=== PATIENT | male | born 1995 | race American Indian/Alaskan Native ===

== ENCOUNTER 2020-04-17 07:33 | Emergency (ER) | payer OTHER ==
[2020-04-17 07:46] VITALS: BP 126/65
[2020-04-17] MEDS ORDERED: SODIUM CHLORIDE 0.9% 1000 ML 1,000 ML IV ONE (08:23)
[2020-04-17] MEDS ORDERED: ONDANSETRON 4 MG/2 ML INJ IV ONE (08:23)
[2020-04-17 08:45] LABS: Basophils # (Auto) 0.1 K/mm3 (0.0-0.1); Basophils % (Auto) 0.7 % (0.0-1.8); Eosinophils % (Auto) 0.3 % (0.0-4.3); Hematocrit 45.9 % (35.5-45.6); Hemoglobin 15.5 gm/dl (11.8-15.2); Lymphocytes # (Auto) 0.8 K/mm3 (1.2-5.4); Mean Corpuscular HGB Conc 34 % (32-34); Mean Corpuscular Volume 82 fl (84-94); Monocytes # (Auto) 0.5 K/mm3 (0.0-0.8); Monocytes % (Auto) 3.4 % (0.0-7.3); Platelet Count 211 K/mm3 (140-440); Red Blood Count 5.61 M/mm3 (3.65-5.03)
--- NOTE | 2020-04-17 08:56 | Emergency Department Report ---
ED N/V/D HPI - General Chief complaint: Nausea/Vomiting/Diarrhea Stated complaint: NAUSEA Time Seen by Provider: 04/17/20 08:01 Source: patient Mode of arrival: Ambulatory Limitations: No Limitations - History of Present Illness Initial comments: Patient is a 24-year-old male presents emergency room complaints of nausea, vomiting, diarrhea that began yesterday at 3 PM. He states that the diarrhea is mild but he has had multiple episodes of vomiting. Patient states that he ate some leftover steak, rice, veggies that were approximately 3 days old and then about an hour and a half later he began to have the symptoms. He denies any abdominal pain, fever, hematochezia, hematemesis, melena, pus in the stool. He denies any recent travel, sick contacts, water from a different source, recent antibiotics. He denies any past medical history. He denies any allergies to medications. He endorses marijuana use. He denies alcohol use. - Related Data Previous Rx's Medication Instructions Recorded Last Taken Type Ondansetron [Zofran Odt] 4 mg PO Q8HR PRN #10 tab.rapdis 04/17/20 Unknown Rx Allergies Allergy/AdvReac Type Severity Reaction Status Date / Time No Known Allergies Allergy Unverified 04/17/20 07:44 ED Review of Systems ROS: Stated complaint: NAUSEA Other details as noted in HPI Comment: All other systems reviewed and negative ED Past Medical Hx - Past Medical History Previous Medical History?: No - Surgical History Past Surgical History?: No - Social History Smoking Status: Current Every Day Smoker Substance Use Type: Marijuana - Medications Home Medications: Home Medications Medication Instructions Recorded Confirmed Last Taken Type Ondansetron [Zofran Odt] 4 mg PO Q8HR PRN #10 tab.rapdis 04/17/20 Unknown Rx ED Physical Exam - General Limitations: No Limitations General appearance: alert, in no apparent distress - Head Head exam: Present: atraumatic, normocephalic - Eye Eye exam: Present: normal appearance - ENT ENT exam: Present: mucous membranes moist - Respiratory Respiratory exam: Present: normal lung sounds bilaterally. Absent: respiratory distress, wheezes, rales, rhonchi, stridor, chest wall tenderness, accessory muscle use, decreased breath sounds, prolonged expiratory - Cardiovascular Cardiovascular Exam: Present: regular rate, normal rhythm, normal heart sounds. Absent: systolic murmur, diastolic murmur, rubs, gallop - GI/Abdominal GI/Abdominal exam: Present: soft, normal bowel sounds, other (negative murphys sign, no mcburneys point ttp, no rushing turners or cullens sign). Absent: distended, tenderness, guarding, rebound, rigid - Neurological Exam Neurological exam: Present: alert, oriented X3 - Psychiatric Psychiatric exam: Present: normal affect, normal mood - Skin Skin exam: Present: warm, dry, intact ED Course Vital Signs 04/17/20 07:44 Temperature 98.0 F Pulse Rate 60 Respiratory 18 Rate Blood Pressure 126/65 O2 Sat by Pulse 100 Oximetry ED Medical Decision Making - Lab Data Result diagrams: 04/17/20 08:35 04/17/20 08:35 Lab Results 04/17/20 04/17/20 Range/Units 08:35 08:35 WBC 13.1 H (4.5-11.0) K/mm3 RBC 5.61 H (3.65-5.03) M/mm3 Hgb 15.5 H (11.8-15.2) gm/dl Hct 45.9 H (35.5-45.6) % MCV 82 L (84-94) fl MCH 28 (28-32) pg MCHC 34 (32-34) % RDW 13.0 L (13.2-15.2) % Plt Count 211 (140-440) K/mm3 Lymph % (Auto) 6.0 L (13.4-35.0) % [place] % (Auto) 3.4 (0.0-7.3) % Eos % (Auto) 0.3 (0.0-4.3) % Baso % (Auto) 0.7 (0.0-1.8) % Lymph # 0.8 L (1.2-5.4) K/mm3 [place] # 0.5 (0.0-0.8) K/mm3 Eos # 0.0 (0.0-0.4) K/mm3 Baso # 0.1 (0.0-0.1) K/mm3 Seg Neutrophils % 89.6 H (40.0-70.0) % Seg Neutrophils # 11.7 H (1.8-7.7) K/mm3 Sodium 142 (137-145) mmol/L Potassium 4.0 (3.6-5.0) mmol/L Chloride 99.2 (98-107) mmol/L Carbon Dioxide 26 (22-30) mmol/L Anion Gap 21 mmol/L BUN 11 (9-20) mg/dL Creatinine 1.1 (0.8-1.3) mg/dL Estimated GFR > 60 ml/min BUN/Creatinine Ratio 10 % Glucose 150 H (75-100) mg/dL Calcium 10.6 H (8.4-10.2) mg/dL Total Bilirubin 0.60 (0.1-1.2) mg/dL AST 15 (5-40) units/L ALT 14 (7-56) units/L Alkaline Phosphatase 49 (35-129) units/L Total Protein 9.1 H (6.3-8.2) g/dL Albumin 5.3 H (3.9-5) g/dL Albumin/Globulin Ratio 1.4 % Lipase 43 (13-60) units/L - Medical Decision Making Patient is a 24-year-old male presents emergency room complaints of nausea, vomiting, diarrhea that began yesterday at 3 PM. He states that the diarrhea is mild but he has had multiple episodes of vomiting. Patient states that he ate some leftover steak, rice, veggies that were approximately 3 days old and then about an hour and a half later he began to have the symptoms. He denies any abdominal pain, fever, hematochezia, hematemesis, melena, pus in the stool. He denies any recent travel, sick contacts, water from a different source, recent antibiotics. He denies any past medical history. He denies any allergies to medications. He endorses marijuana use. He denies alcohol use. Vitals are normal. No abdominal tenderness on exam, no guarding, no rebound, no rigidity, normal bowel sounds, no peritoneal signs, negative Langford sign, no McBurney's point tenderness, negative Rushing Greene's and Femi sign. Labs significant for mildly elevated white blood cell count of 13,000, also appears to have hemoconcentration likely secondary to dehydration. Patient given 1 L of IV fluids and Zofran and symptoms completely improved and he was feeling much better and had no further episodes of vomiting patient was ready to go home. Patient was able to tolerate p.o. intake. Symptoms likely related to gastroenteritis. Advised patient that he would need to be reexamined within the next 2 days and have a repeat abdominal examination. I discussed very strict return precautions with patient. Patient given prescription for Zofran. Advised patient Please take medication as prescribed as needed. Increase your water intake over the next several days. Eat a bland liquid diet and slowly advance your diet as tolerated. Follow-up with a primary care doctor to be reexamined within the next 2 days. Return to the emergency room immediately for any new or worsening symptoms including but not limited to if you began experiencing abdominal pain, fever, continued vomiting, unable to tolerate by mouth intake, or if symptoms are not improving Critical care attestation.: If time is entered above; I have spent that time in minutes in the direct care of this critically ill patient, excluding procedure time. ED Disposition Clinical Impression: Nausea vomiting and diarrhea Disposition: - TO HOME OR SELFCARE Is pt being admited?: No Does the pt Need Aspirin: No Condition: Stable Instructions: Gastroenteritis (ED) Additional Instructions: Please take medication as prescribed as needed. Increase your water intake over the next several days. Eat a bland liquid diet and slowly advance your diet as tolerated. Follow-up with a primary care doctor to be reexamined within the next 2 days. Return to the emergency room immediately for any new or worsening symptoms including but not limited to if you began experiencing abdominal pain, fever, continued vomiting, unable to tolerate by mouth intake, or if symptoms are not improving Prescriptions: Ondansetron [Zofran Odt] 4 mg PO Q8HR PRN #10 tab.rapdis PRN Reason: Nausea And Vomiting Referrals: PRIMARY CARE, [Primary Care Provider] - 2-3 Days Time of Disposition: 09:15 Print Language: GEORGIAN
[2020-04-17 09:06] LABS: Alanine Aminotransferase 14 units/L (7-56); Albumin 5.3 g/dL (3.9-5); BUN/Creatinine Ratio 10; Blood Urea Nitrogen 11 mg/dL (9-20); Calcium 10.6 mg/dL (8.4-10.2); Hemolysis Index 10
== END 2020-04-17 09:39 | disposition home or self-care (01) ==
LOC: ED 07:33
DX: R11.2 Nausea with vomiting, unspecified (principal); R19.7 Diarrhea, unspecified; F17.200 Nicotine dependence, unspecified, uncomplicated; F12.10 Cannabis abuse, uncomplicated
CPT/HCPCS: 36415; 80053; 83690; 85025; 96361; 96374; 99283; J2405; J7030

== ENCOUNTER 2020-04-18 06:33 | Emergency (ER) | payer OTHER ==
[2020-04-18 07:12] VITALS: BP 120/79
[2020-04-18 09:31] LABS: Basophils # (Auto) 0.1 K/mm3 (0.0-0.1); Basophils % (Auto) 0.5 % (0.0-1.8); Eosinophils % (Auto) 0.1 % (0.0-4.3); Hematocrit 47.4 % (35.5-45.6); Hemoglobin 16.1 gm/dl (11.8-15.2); Lymphocytes # (Auto) 1.4 K/mm3 (1.2-5.4); Lymphocytes % (Auto) 9.8 % (13.4-35.0); Mean Corpuscular HGB Conc 34 % (32-34); Mean Corpuscular Volume 81 fl (84-94); Platelet Count 226 K/mm3 (140-440); Red Blood Count 5.83 M/mm3 (3.65-5.03); Red Cell Distribution Width 13.1 % (13.2-15.2)
[2020-04-18] MEDS ORDERED: SODIUM CHLORIDE 0.9% 1000 ML 1,000 ML IV ONE (10:25)
[2020-04-18] MEDS ORDERED: METOCLOPRAMIDE 10 MG/2 ML INJ IV ONE (10:25)
--- NOTE | 2020-04-18 10:28 | Emergency Department Report ---
ED N/V/D HPI - General Chief complaint: Nausea/Vomiting/Diarrhea Stated complaint: NAUSEA Time Seen by Provider: 04/18/20 10:16 Source: patient Mode of arrival: Ambulatory Limitations: No Limitations - History of Present Illness Initial comments: Patient is 24 years old male with no significant past medical history. Patient presented to the ER complaining of nausea, vomiting and watery diarrhea. Patient stated that symptoms started approximately 2 hours after he ate leftover steak and rice. Patient denied any fever, chills, abdominal pain, chest pain shortness of breath. Patient was seen yesterday received Zofran but he stated symptom is not improving. Patient is actively vomiting in the emergency room. MD complaint: nausea, vomiting, diarrhea -: Last night Description of Vomiting: food contents Description of Diarrhea: water Associated Abdominal Pain: No - Related Data Previous Rx's Medication Instructions Recorded Last Taken Type Ondansetron [Zofran Odt] 4 mg PO Q8HR PRN #10 tab.rapdis 04/17/20 Unknown Rx Promethazine [Phenergan] 25 mg MI Q6HR PRN #21 supp.rect 04/18/20 Unknown Rx Allergies Allergy/AdvReac Type Severity Reaction Status Date / Time No Known Allergies Allergy Unverified 04/17/20 07:44 ED Review of Systems ROS: Stated complaint: NAUSEA Other details as noted in HPI Comment: All other systems reviewed and negative Constitutional: denies: chills, fever Respiratory: denies: cough, shortness of breath, SOB with exertion, SOB at rest, wheezing Cardiovascular: denies: chest pain, palpitations Gastrointestinal: nausea, vomiting, diarrhea. denies: abdominal pain, constipation, hematemesis, melena, hematochezia Musculoskeletal: denies: back pain Neurological: denies: headache, weakness, numbness, paresthesias, confusion, abnormal gait ED Past Medical Hx - Past Medical History Previous Medical History?: No - Surgical History Past Surgical History?: No - Social History Smoking Status: Never Smoker - Medications Home Medications: Home Medications Medication Instructions Recorded Confirmed Last Taken Type Ondansetron [Zofran Odt] 4 mg PO Q8HR PRN #10 tab.rapdis 04/17/20 Unknown Rx Promethazine [Phenergan] 25 mg MI Q6HR PRN #21 supp.rect 04/18/20 Unknown Rx ED Physical Exam - General Limitations: No Limitations General appearance: alert, in no apparent distress, other (Actively vomiting in the ER.) - Eye Eye exam: Present: normal appearance - ENT ENT exam: Present: mucous membranes dry - Neck Neck exam: Present: normal inspection, full ROM. Absent: tenderness, meningismus, lymphadenopathy, thyromegaly - Respiratory Respiratory exam: Present: normal lung sounds bilaterally - Cardiovascular Cardiovascular Exam: Present: regular rate, normal rhythm, normal heart sounds - GI/Abdominal GI/Abdominal exam: Present: soft, normal bowel sounds. Absent: distended, tenderness, guarding, rebound, rigid, organomegaly, mass, bruit, pulsatile mass, hernia - Extremities Exam Extremities exam: Present: normal inspection, full ROM, normal capillary refill. Absent: tenderness, pedal edema, joint swelling, calf tenderness - Back Exam Back exam: Present: normal inspection, full ROM. Absent: CVA tenderness (R), CVA tenderness (L) - Neurological Exam Neurological exam: Present: alert, oriented X3, CN II-XII intact, normal gait, reflexes normal - Psychiatric Psychiatric exam: Present: normal mood - Skin Skin exam: Present: warm, dry, intact, normal color ED Course Vital Signs 04/18/20 06:50 Temperature 98.1 F Pulse Rate 82 Respiratory 14 Rate Blood Pressure 120/79 O2 Sat by Pulse 94 Oximetry ED Medical Decision Making - Lab Data Result diagrams: 04/18/20 08:58 04/18/20 12:15 - Medical Decision Making Patient is 24 years old male with no significant past medical history. Patient presented to the ER complaining of nausea, vomiting and watery diarrhea. Patient stated that symptoms started approximately 2 hours after he ate leftover steak and rice. Patient denied any fever, chills, abdominal pain, chest pain shortness of breath. Patient was seen yesterday received Zofran but he stated symptom is not improving. Patient is actively vomiting in the emergency room. Labs reviewed and is unremarkable. Patient received normal saline, Reglan and Zofran. Patient is not actively vomiting anymore. Acute abdominal series is negative for acute finding. Patient given her prescription for Phenergan as needed advised to follow-up with his primary care physician in the next 2 to 3 days and to return to the ER if symptoms are not improved. Critical care attestation.: If time is entered above; I have spent that time in minutes in the direct care of this critically ill patient, excluding procedure time. ED Disposition Clinical Impression: Nausea vomiting and diarrhea, Food poisoning Disposition: DC-01 TO HOME OR SELFCARE Is pt being admited?: No Condition: Stable Instructions: Acute Nausea and Vomiting (ED) Prescriptions: Promethazine [Phenergan] 25 mg MI Q6HR PRN #21 supp.rect PRN Reason: Nausea And Vomiting Referrals: PRIMARY CARE, [Primary Care Provider] - 3-5 Days
[2020-04-18] MEDS ORDERED: diphenhydrAMINE 50 MG/ML VIAL ONE (11:15)
[2020-04-18] MEDS ORDERED: ONDANSETRON 4 MG/2 ML INJ ONE (11:15)
--- NOTE | 2020-04-18 11:17 | XRay Report ---
ABDOMEN 3 VIEW(S) INDICATION / CLINICAL INFORMATION: abdominal pain. COMPARISON: None available. FINDINGS: TUBES / LINES: None. BOWEL GAS PATTERN: No significant abnormality. FREE AIR / EXTRALUMINAL GAS: None seen. ADDITIONAL FINDINGS: No significant additional findings. CHEST: Visualized chest shows no significant abnormality. IMPRESSION: 1. No significant abnormality. Signer Name: Aki Santana MD Signed: 04/18/2020 11:12 AM Workstation Name: [id number]
[2020-04-18] MEDS ORDERED: ONDANSETRON 4 MG/2 ML INJ IV ONE (11:18)
[2020-04-18] MEDS ORDERED: diphenhydrAMINE 50 MG/ML VIAL IV ONE (11:19)
[2020-04-18 12:50] LABS: BUN/Creatinine Ratio 11; Blood Urea Nitrogen 12 mg/dL (9-20); Calcium 9.9 mg/dL (8.4-10.2); Hemolysis Index 13
== END 2020-04-18 13:30 | disposition home or self-care (01) ==
LOC: ED 06:33
DX: A05.9 Bacterial foodborne intoxication, unspecified (principal); Z79.899 Other long term (current) drug therapy
CPT/HCPCS: 36415; 74022; 80048; 83690; 85025; 96361; 96374; 96375; 99284; J1200; J2405; J2765; J7030

== ENCOUNTER 2020-06-04 12:23 | Emergency (ER) | payer OTHER ==
[2020-06-04 12:37] VITALS: BP 120/69
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
--- NOTE | 2020-06-04 13:20 | XRay Report ---
Left hip 2 views INDICATION: Left hip pain following injury IMPRESSION: No acute fracture or subluxation of the left hip identified. Signer Name: Chris Borges MD Signed: 06/04/2020 1:15 PM Workstation Name: [id number]
--- NOTE | 2020-06-04 13:20 | XRay Report ---
Right hand 3 views INDICATION: Right hand pain following injury IMPRESSION: Healed posttraumatic deformity involving the fifth metacarpal. No acute fracture or sublu xation is identified. Signer Name: Chris Borges MD Signed: 06/04/2020 1:15 PM Workstation Name: [id number]
--- NOTE | 2020-06-04 13:21 | XRay Report ---
Left knee 4 views INDICATION: Left knee pain following injury IMPRESSION: no fracture or subluxation. Small knee effusion. Mild prepatellar soft tissue edema. Signer Name: Chris Borges MD Signed: 06/04/2020 1:16 PM Workstation Name: [id number]
--- NOTE | 2020-06-04 13:22 | XRay Report ---
Lumbar spine 3 views INDICATION: Neck pain following injury IMPRESSION: No acute fracture or subluxation identified. Moderate facet arthropathy L5-S1 causing mil d bilateral neural foraminal narrowing. Signer Name: Chris Borges MD Signed: 06/04/2020 1:17 PM Workstation Name: [id number]
== END 2020-06-04 13:43 | disposition home or self-care (01) ==
LOC: ED 12:23
DX: S66.911A Strain of unspecified muscle, fascia and tendon at wrist and hand level, right hand, initial encounter (principal); S76.012A Strain of muscle, fascia and tendon of left hip, initial encounter; S86.912A Strain of unspecified muscle(s) and tendon(s) at lower leg level, left leg, initial encounter; S39.012A Strain of muscle, fascia and tendon of lower back, initial encounter; F17.200 Nicotine dependence, unspecified, uncomplicated; Z98.890 Other specified postprocedural states; Z79.899 Other long term (current) drug therapy; V89.2XXA Person injured in unspecified motor-vehicle accident, traffic, initial encounter; Y93.89 Activity, other specified; Y92.410 Unspecified street and highway as the place of occurrence of the external cause; Y99.8 Other external cause status
CPT/HCPCS: 72100; 99283